=== PATIENT | male | born 1960 | race Caucasian/White ===

== ENCOUNTER 2019-12-24 14:00 | Outpatient (CLI) | payer MEDICARE, SELFPAY ==
--- NOTE | 2019-12-24 14:11 | MR_ITS ---
WS: [id number] MRI LUMBAR SPINE WITH AND WITHOUT CONTRAST HISTORY: LOW BACK PAIN COMPARISON: 02/03/2019 TECHNIQUE: Sagittal and axial multisequence imaging is submitted. Sagittal and axial T1 fat sat seque nces post-ProHance 17 cc IV. Mild RIGHT convex curvature of the lumbar spine. Prior L4-S1 fusion hardware. Interval body spacers a t L4-5 and L5-S1. No marrow edema or fractures. Straightening of the normal lumbar lordosis. Disc space narrowing and desiccation throughout the remaining unfused disc levels. Conus terminates normally at mid L1. L1-L2: Mild annular disc bulging. Mild facet arthritis. No significant stenosis. L2-L3: Mild annular disc bulging and facet arthritis. Mild flattening of the thecal sac with very mil d narrowing of the LEFT subarticular recess. Small amount of fluid in the facet joints. No interval c hange. L3-L4: Diffuse annular disc bulging and osteophytic ridging. Disc bulging is asymmetric to the LEFT. Moderate central canal stenosis with severe LEFT subarticular recess and proximal foraminal stenosis. Fluid in the facet joints bilaterally. Mild RIGHT foraminal narrowing. Central stenosis is not as se clemencia as on the prior study from 02/03/2019. L4-L5: Thecal sac is widely patent. Nerve roots are becoming clumped within the thecal sac. RIGHT hem ilaminectomy defect. L5-S1: Widely patent thecal sac. Nerve roots are becoming clumped within the thecal sac. RIGHT hemila minectomy defect. No central stenosis. There is increased soft tissue in the RIGHT foramen which does enhance. Consistent with scar tissue. No recurrent disc herniation. No discitis or osteomyelitis. Mild atherosclerosis aorta with no aneurysm. MR/MR lumbar spine wo/w con [id number] IMPRESSION: 1. Status post lumbar fusion from L4 to S1 with laminectomy defects at L4 and L5 and S1. 2. Moderate central stenosis with severe LEFT subarticular and proximal forami nal stenosis at L3-4. The central stenosis is not quite as severe as on the kori or study of 02/03/2019 but the subarticular recess stenosis and encroachment latasha ins the same. 3. No discitis or osteomyelitis.
[2019-12-24 14:56] LABS: Blood Urea Nitrogen 13 mg/dL (8-23); Glomerular Filtration Rate 85.8 mL/min (90-130)
== END 2019-12-24 14:01 | disposition home or self-care (01) ==
LOC: RADWPI 14:06
PROVIDERS: Family Provider Student in an Organized Health Care Education/Training Program; PCP Student in an Organized Health Care Education/Training Program; Visit Provider Specialist
DX: M54.5 Low back pain (principal); Z98.1 Arthrodesis status; M43.27 Fusion of spine, lumbosacral region; M48.061 Spinal stenosis, lumbar region without neurogenic claudication
CPT/HCPCS: 72158; 82565; 84520; A9579